=== PATIENT | male | born 1995 | race Caucasian/White ===

== ENCOUNTER 2022-11-23 17:06 | Emergency (ER) | payer BC ==
--- NOTE | 2022-11-23 17:15 | NUR ---
CALLED TO TRIAGE, NO ANSWER.
--- NOTE | 2022-11-23 17:37 | NUR ---
CALLED FOR TRIAGE , NO ANSWER.
== END 2022-11-23 17:58 | disposition home or self-care (01) ==
LOC: ER 17:14
DX: Z53.21 Procedure and treatment not carried out due to patient leaving prior to being seen by health care provider (principal)